=== PATIENT | male | born 1940 | race Caucasian/White ===

== ENCOUNTER → 2017-06-08 | Outpatient (CLI) | payer MEDICARE ==
[~2017-06-08] MED LIST: ACET-1770 PO; ALLO300T PO; ALPR0.257 PO; AMIO200T42 PO; ASPI-496 PO; BISA10SU2 PR; BISA5TAB5 PO; CARV3.122 PO; CLOP75TA52 PO; DEXT1DRO7 EACHEYE; DOCU-131 PO; DRON10CA PO; ENOX40SY4 SQ; FERR240T PO; FURO40TA6 PO; INSU100I9 SQ-INSULIN; LISI-167 PO; MAGN400O7 PO; ONDA4TAB7 PO; PRAV20TA PO; TEMA15CA PO; beer PO
[2017-06-08 13:13] LABS: ASPARTATE AMINO TRANSFERASE 28 U/L (15-37); BLOOD UREA NITROGEN 17 mg/dL (7-18)
== END | disposition home or self-care (01) ==
LOC: LAB 10:01
PROVIDERS: ATTEND Internal Medicine Cardiovascular Disease
DX: E11.9 Type 2 diabetes mellitus without complications (principal); E78.2 Mixed hyperlipidemia; I10 Essential (primary) hypertension
CPT/HCPCS: 36415; 80053; 80061; 83036

== ENCOUNTER → 2017-12-11 | Outpatient (CLI) | payer MEDICARE | END | disposition home or self-care (01) | LOC: CVU 12:36 | PROVIDERS: ATTEND Internal Medicine Cardiovascular Disease | DX: I08.1 Rheumatic disorders of both mitral and tricuspid valves (principal); I25.2 Old myocardial infarction; I10 Essential (primary) hypertension; E78.5 Hyperlipidemia, unspecified; Z95.1 Presence of aortocoronary bypass graft | CPT/HCPCS: 93306 ==

== ENCOUNTER → 2017-12-14 | Outpatient (CLI) | payer MEDICARE ==
[2017-12-14 13:05] LABS: HEMOGLOBIN A1C 7.2 % (4.2-6.3)
== END ==
LOC: LAB 11:40
PROVIDERS: ATTEND Internal Medicine Cardiovascular Disease
DX: I10 Essential (primary) hypertension (principal); E11.9 Type 2 diabetes mellitus without complications; I25.5 Ischemic cardiomyopathy; E78.5 Hyperlipidemia, unspecified
CPT/HCPCS: 36415; 83036

== ENCOUNTER → 2019-08-29 | Outpatient (CLI) | payer MEDICARE ==
[~2019-08-29] MED LIST changes: -BISA10SU2 PR; +BISA10SU4 PR
== END | disposition home or self-care (01) ==
LOC: CFH 12:29
PROVIDERS: ATTEND Internal Medicine Cardiovascular Disease
DX: I08.3 Combined rheumatic disorders of mitral, aortic and tricuspid valves (principal); I25.5 Ischemic cardiomyopathy
CPT/HCPCS: 93306

== ENCOUNTER → 2019-09-06 | Outpatient (CLI) | payer MEDICARE ==
[2019-09-06 13:05] LABS: ALBUMIN 3.6 g/dL (3.4-5.0); ANION GAP 7 mmol/L (5-15); CALCIUM 8.6 mg/dL (8.5-10.1); CHLORIDE 106 mmol/L (98-107)
[2019-09-06 13:08] LABS: ALANINE AMINOTRANSFERASE 26 U/L (12-78); ALKALINE PHOSPHATASE 67 U/L (45-117); BILIRUBIN,TOTAL 0.7 mg/dL (0.2-1.0); CHOL/HDL RATIO 2.4; CHOLESTEROL, TOTAL 139 mg/dL (140-239); CREATININE 1.44 mg/dL (0.7-1.3); HDL CHOL % 41 % (26-37); HDL CHOLESTEROL (DIRECT) 57 mg/dL (40-60); LDL CHOLESTEROL,CALCULATED 60 mg/dL (54-169); LDL/HDL RATIO 1.1 (0.5-3.0); TOTAL PROTEIN 7.3 g/dL (6.4-8.2); TRIGLYCERIDES 112 mg/dL (50-200); VLDL CHOLESTEROL 22 mg/dL (0-25)
== END | disposition home or self-care (01) ==
LOC: CFH 10:25
PROVIDERS: ATTEND Internal Medicine Cardiovascular Disease
DX: I10 Essential (primary) hypertension (principal); E78.2 Mixed hyperlipidemia; I25.5 Ischemic cardiomyopathy; Z95.1 Presence of aortocoronary bypass graft; Z79.899 Other long term (current) drug therapy
CPT/HCPCS: 36415; 80053; 80061; 83036

== ENCOUNTER 2019-10-22 10:55 | Inpatient (IN) | payer MEDICARE ==
[~2019-10-22] VITALS: Ht 180.3 cm; Wt 87.0 kg
[~2019-10-22 10:55] MED LIST changes: +CEFAZOLIN 1,000 MG ONE; +ONDANSETRON 2MG/ML, 2ML ONE; +PROPOFOL 10 MG/ML, 20ML ONE; +ROCURONIUM 10MG/ML,5ML ONE; +SUCCINYLCHOLINE 20 MG/ML, 10ML ONE
--- NOTE | 2019-10-22 11:09 | NUR ---
PT WAS BIB [facility] FOR A GLF HE SUFFERED LAST NIGHT. HE WAS WEDGED BETWEEN HIS COUCH AND THE WALL UNTIL HE WAS FOUND BY HIS GF. DENIES LOC. DENIES HITTING HIT HEAD. LEFT HIP IS PAINFUL WITH MOVEMENT. MD IS BEDSIDE FOR ASSESSMENT. BLANKET PROVIDED. EKG COMPLETE
[2019-10-22 11:34] LABS: BASOPHILS # (AUTO) 0.03 x10^3/uL (0-0.1); BASOPHILS % (AUTO) 0 % (0-1); EOSINOPHILS # (AUTO) 0.02 x10^3/uL (0-0.4); EOSINOPHILS % (AUTO) 0 % (1-7); LYMPHOCYTES # (AUTO) 0.71 x10^3/uL (1-3.4); LYMPHOCYTES % (AUTO) 5 % (22-44); MD NO; MEAN CORPUSCULAR HEMOGLOBIN 34.8 pg (27.5-34.5); MEAN CORPUSCULAR HGB CONC 33.9 g/dL (33.2-36.2); MEAN CORPUSCULAR VOLUME 102.6 fL (81-97); MEAN PLATELET VOLUME 9.3 fL (7.4-10.4); MONOCYTES % (AUTO) 4 % (2-9); NEUTROPHILS # (AUTO) 12.21 x10^3/uL (1.8-6.8); NEUTROPHILS % (AUTO) 91 % (42-75); PLATELET COUNT 107 x10^3/uL (130-400); RED BLOOD COUNT 4.59 x10^6/uL (4.38-5.82); RED CELL DISTRIBUTION WIDTH 14.4 % (9.4-14.8)
[2019-10-22 11:44] LABS: PROTHROMBIN TIME 10.6 Seconds (9.6-11.5)
[2019-10-22 11:46] LABS: ALBUMIN 3.7 g/dL (3.4-5.0); ANION GAP 13 mmol/L (5-15); CHLORIDE 109 mmol/L (98-107)
[2019-10-22 11:49] LABS: ALANINE AMINOTRANSFERASE 30 U/L (12-78); ALKALINE PHOSPHATASE 75 U/L (45-117); BILIRUBIN,TOTAL 1.3 mg/dL (0.2-1.0); CREATININE 1.45 mg/dL (0.7-1.3); TOTAL PROTEIN 7.4 g/dL (6.4-8.2)
[2019-10-22] MEDS ORDERED: LABETALOL 5MG/ML, 20ML IVPush ONE (12:00)
[2019-10-22] MEDS ORDERED: LABETALOL 5MG/ML, 20ML ONE (12:26)
[2019-10-22] MEDS ORDERED: METF500T27 PO (12:46)
[2019-10-22] MEDS ORDERED: ONDANSETRON 2MG/ML, 2ML IVPush PRN (13:00)
[2019-10-22] MEDS ORDERED: DEXTROSE 50%, 50ML SYRINGE IVPush PRN (13:00)
[2019-10-22] MEDS ORDERED: hydrALAzine 20 MG/ML, 1ML IVPush PRN (13:00)
[2019-10-22] MEDS ORDERED: LISINOPRIL 10 MG TABLET PO SCH (13:00)
[2019-10-22] MEDS ORDERED: GLUCAGON 1 MG IM PRN (13:00)
[2019-10-22] MEDS ORDERED: SODIUM CHLORIDE 0.9%, 500ML IVBOLUS ONE (13:00)
[2019-10-22] MEDS ORDERED: DEXTROSE 4 GM TAB.CHEW PO PRN (13:00)
[2019-10-22] MEDS ORDERED: ONDANSETRON ODT 4 MG PO PRN (13:00)
[2019-10-22] MEDS ORDERED: AMLODIPINE 5 MG TABLET PO SCH (13:00)
[2019-10-22] MEDS ORDERED: ACETAMINOPHEN 325 MG TABLET PO PRN (13:00)
[2019-10-22] MEDS ORDERED: FENTANYL PF 250 MCG/5ML ONE (13:47)
[2019-10-22] MEDS ORDERED: MIDAZOLAM 1 MG/ML, 2ML ONE (13:47)
[2019-10-22] MEDS ORDERED: BUPIVACAINE/PF-EPI 0.5% 1:200K ONE (13:51)
[2019-10-22] MEDS ORDERED: LISINOPRIL 10 MG TABLET PO ONE (14:00)
[2019-10-22] MEDS ORDERED: TRANEXAMIC ACID 100 MG/ML, 10ML ONE (15:32)
[2019-10-22] MEDS ORDERED: LISINOPRIL 10 MG TABLET ONE (18:20)
[2019-10-22] MEDS: METOPROLOL SUCCINATE 50 MG TAB.ER.24H PO SCH (18:23)
[2019-10-22 19:14] VITALS: BP 148/85
[2019-10-22] MEDS: INSULIN LISPRO 100 UNITS/ML, PEN SQ-INSULIN SCH ×2 (19:32→20:48)
[2019-10-22] MEDS: BACLOFEN 10 MG TABLET PO PRN (20:47)
[2019-10-22] MEDS: SODIUM CHLORIDE FLUSH 10ML SYR IVF SCH (20:48)
[2019-10-22] MEDS ORDERED: rusuvastatin (21:36)
[2019-10-22] MEDS ORDERED: METO200T47 PO (21:36)
[2019-10-22] MEDS: CEFAZOLIN PMX 1GM/50ML 50 ML IV SCH (23:59)
[2019-10-23] VITALS (7 sets, daily range): BP systolic 90–143; BP diastolic 58–97
[2019-10-23] MEDS: ASPIRIN 81 MG TABLET EC PO SCH (05:01)
[2019-10-23] MEDS: OXYcodone IR 5MG TABLET PO PRN ×2 (05:02→12:26)
[2019-10-23] MEDS: BACLOFEN 10 MG TABLET PO PRN ×3 (05:02→20:45)
[2019-10-23] MEDS: METOPROLOL SUCCINATE 50 MG TAB.ER.24H PO SCH (05:02)
[2019-10-23 05:31] LABS: ANION GAP 8 mmol/L (5-15); CALCIUM 8.3 mg/dL (8.5-10.1); CHLORIDE 108 mmol/L (98-107)
[2019-10-23 05:32] LABS: MEAN CORPUSCULAR HEMOGLOBIN 34.8 pg (27.5-34.5); MEAN CORPUSCULAR HGB CONC 33.4 g/dL (33.2-36.2); RED BLOOD COUNT 4.13 x10^6/uL (4.38-5.82); RED CELL DISTRIBUTION WIDTH 14.7 % (9.4-14.8)
[2019-10-23 06:01] LABS: CREATININE 1.35 mg/dL (0.7-1.3)
[2019-10-23 06:17] LABS: MICROSCOPIC AUTO
[2019-10-23 06:18] LABS: CULTURE INDICATED? NO
[2019-10-23 06:19] LABS: BASOPHILS # (AUTO) 0.01 x10^3/uL (0-0.1); BASOPHILS % (AUTO) 0 % (0-1); EOSINOPHILS # (AUTO) 0.08 x10^3/uL (0-0.4); EOSINOPHILS % (AUTO) 1 % (1-7); LYMPHOCYTES % (AUTO) 9 % (22-44); MD SCAN; MEAN PLATELET VOLUME 9.6 fL (7.4-10.4); MONOCYTES # (AUTO) 0.41 x10^3/uL (0.2-0.8); MONOCYTES % (AUTO) 3 % (2-9); NEUTROPHILS # (AUTO) 11.82 x10^3/uL (1.8-6.8); NEUTROPHILS % (AUTO) 87 % (42-75); PLATELET COUNT 86 x10^3/uL (130-400)
[2019-10-23] MEDS: CEFAZOLIN PMX 1GM/50ML 50 ML IV SCH (07:35)
[2019-10-23] MEDS: INSULIN LISPRO 100 UNITS/ML, PEN SQ-INSULIN SCH ×4 (08:05→20:45)
[2019-10-23] MEDS: ALLOPURINOL 300 MG TABLET PO SCH (08:06)
[2019-10-23] MEDS: LISINOPRIL 10 MG TABLET PO SCH (08:06)
[2019-10-23] MEDS: SODIUM CHLORIDE FLUSH 10ML SYR IVF SCH ×2 (08:06→20:46)
[2019-10-23] MEDS: morphine SULFATE 10 MG/ML, 1ML IVPush PRN ×3 (13:36→20:45)
[2019-10-24 01:40] VITALS: BP 108/67
[2019-10-24 04:42] VITALS: BP 166/102
[2019-10-24] MEDS: ASPIRIN 81 MG TABLET EC PO SCH (04:45)
[2019-10-24] MEDS: METOPROLOL SUCCINATE 50 MG TAB.ER.24H PO SCH (04:45)
[2019-10-24 05:22] LABS: MEAN CORPUSCULAR HEMOGLOBIN 34.5 pg (27.5-34.5); MEAN CORPUSCULAR VOLUME 104.4 fL (81-97); MEAN PLATELET VOLUME 10.3 fL (7.4-10.4); PLATELET COUNT 74 x10^3/uL (130-400); RED BLOOD COUNT 4.13 x10^6/uL (4.38-5.82); RED CELL DISTRIBUTION WIDTH 14.6 % (9.4-14.8)
[2019-10-24 05:28] LABS: ALANINE AMINOTRANSFERASE 18 U/L (12-78); ALBUMIN 2.8 g/dL (3.4-5.0); ANION GAP 6 mmol/L (5-15); CALCIUM 8.9 mg/dL (8.5-10.1); CHLORIDE 107 mmol/L (98-107); CREATININE 1.55 mg/dL (0.7-1.3)
[2019-10-24 05:30] LABS: ALKALINE PHOSPHATASE 67 U/L (45-117); BILIRUBIN,TOTAL 1.3 mg/dL (0.2-1.0); TOTAL PROTEIN 6.5 g/dL (6.4-8.2)
[2019-10-24 05:55] LABS: BASOPHILS # (AUTO) 0.06 x10^3/uL (0-0.1); BASOPHILS % (AUTO) 0 % (0-1); EOSINOPHILS # (AUTO) 0.15 x10^3/uL (0-0.4); EOSINOPHILS % (AUTO) 1 % (1-7); LYMPHOCYTES % (AUTO) 10 % (22-44); MD SCAN; MONOCYTES # (AUTO) 0.63 x10^3/uL (0.2-0.8); MONOCYTES % (AUTO) 5 % (2-9); NEUTROPHILS % (AUTO) 84 % (42-75)
[2019-10-24 06:10] VITALS: BP 104/67
[2019-10-24] MEDS: LISINOPRIL 10 MG TABLET PO SCH (09:25)
[2019-10-24] MEDS: INSULIN LISPRO 100 UNITS/ML, PEN SQ-INSULIN SCH ×4 (09:25→20:37)
[2019-10-24] MEDS: ALLOPURINOL 300 MG TABLET PO SCH (09:25)
[2019-10-24] MEDS: SODIUM CHLORIDE FLUSH 10ML SYR IVF SCH ×2 (09:26→20:37)
[2019-10-24] MEDS: SODIUM CHLORIDE 0.9% 1,000 ML IV SCH (09:27)
[2019-10-24] MEDS ORDERED: SODIUM CHLORIDE 0.9%, 500ML IVBOLUS ONE (09:30)
[2019-10-24 12:29] VITALS: BP 107/64
[2019-10-24] MEDS: OXYcodone IR 5MG TABLET PO PRN (14:19)
[2019-10-24 18:56] VITALS: BP 119/71
[2019-10-25 00:14] VITALS: BP 133/76
[2019-10-25] MEDS: SODIUM CHLORIDE 0.9% 1,000 ML IV SCH ×2 (00:59→12:36)
[2019-10-25 05:37] VITALS: BP 136/73
[2019-10-25] MEDS: ASPIRIN 81 MG TABLET EC PO SCH (05:37)
[2019-10-25] MEDS: METOPROLOL SUCCINATE 50 MG TAB.ER.24H PO SCH (05:37)
[2019-10-25 05:49] LABS: MEAN CORPUSCULAR HEMOGLOBIN 35.1 pg (27.5-34.5); MEAN CORPUSCULAR HGB CONC 33.7 g/dL (33.2-36.2); MEAN CORPUSCULAR VOLUME 103.9 fL (81-97); MEAN PLATELET VOLUME 10.4 fL (7.4-10.4); PLATELET COUNT 71 x10^3/uL (130-400); RED CELL DISTRIBUTION WIDTH 14.5 % (9.4-14.8)
[2019-10-25 05:52] LABS: ALBUMIN 2.5 g/dL (3.4-5.0); ANION GAP 4 mmol/L (5-15); CALCIUM 8.5 mg/dL (8.5-10.1); CHLORIDE 111 mmol/L (98-107)
[2019-10-25 05:56] LABS: ALANINE AMINOTRANSFERASE 15 U/L (12-78); ALKALINE PHOSPHATASE 58 U/L (45-117); BILIRUBIN,TOTAL 1.1 mg/dL (0.2-1.0); CREATININE 1.19 mg/dL (0.7-1.3); TOTAL PROTEIN 5.9 g/dL (6.4-8.2)
[2019-10-25 06:13] VITALS: BP 131/81
[2019-10-25 06:21] LABS: BASOPHILS # (AUTO) 0.02 x10^3/uL (0-0.1); BASOPHILS % (AUTO) 0 % (0-1); EOSINOPHILS # (AUTO) 0.42 x10^3/uL (0-0.4); EOSINOPHILS % (AUTO) 4 % (1-7); LYMPHOCYTES # (AUTO) 1.69 x10^3/uL (1-3.4); LYMPHOCYTES % (AUTO) 17 % (22-44); MD SCAN; MONOCYTES # (AUTO) 0.66 x10^3/uL (0.2-0.8); MONOCYTES % (AUTO) 7 % (2-9); NEUTROPHILS # (AUTO) 7.03 x10^3/uL (1.8-6.8); NEUTROPHILS % (AUTO) 72 % (42-75)
[2019-10-25] MEDS: INSULIN LISPRO 100 UNITS/ML, PEN SQ-INSULIN SCH ×4 (07:00→21:20)
[2019-10-25] MEDS: ALLOPURINOL 300 MG TABLET PO SCH (08:43)
[2019-10-25] MEDS: SODIUM CHLORIDE FLUSH 10ML SYR IVF SCH ×2 (08:43→21:13)
[2019-10-25] MEDS: OXYcodone IR 5MG TABLET PO PRN ×3 (08:44→21:13)
[2019-10-25] MEDS: LISINOPRIL 10 MG TABLET PO SCH (08:44)
[2019-10-25] MEDS ORDERED: POLYETHYLENE GLYCOL 17 GM PACKET PO PRN (10:30)
[2019-10-25 12:28] VITALS: BP 156/90
[2019-10-25 18:44] VITALS: BP 160/88
[2019-10-26 00:36] VITALS: BP 145/80
[2019-10-26 04:53] LABS: MEAN CORPUSCULAR HGB CONC 33.8 g/dL (33.2-36.2); MEAN CORPUSCULAR VOLUME 103.5 fL (81-97); MEAN PLATELET VOLUME 9.6 fL (7.4-10.4); PLATELET COUNT 91 x10^3/uL (130-400); RED BLOOD COUNT 3.57 x10^6/uL (4.38-5.82)
[2019-10-26 04:58] LABS: ALANINE AMINOTRANSFERASE 15 U/L (12-78); ALBUMIN 2.4 g/dL (3.4-5.0); ANION GAP 7 mmol/L (5-15); CALCIUM 8.8 mg/dL (8.5-10.1); CHLORIDE 109 mmol/L (98-107); CREATININE 1.01 mg/dL (0.7-1.3)
[2019-10-26 05:01] LABS: ALKALINE PHOSPHATASE 52 U/L (45-117); BILIRUBIN,TOTAL 1.4 mg/dL (0.2-1.0); TOTAL PROTEIN 5.7 g/dL (6.4-8.2)
[2019-10-26 06:07] LABS: BASOPHILS # (AUTO) 0.03 x10^3/uL (0-0.1); BASOPHILS % (AUTO) 0 % (0-1); EOSINOPHILS # (AUTO) 0.43 x10^3/uL (0-0.4); EOSINOPHILS % (AUTO) 5 % (1-7); LYMPHOCYTES # (AUTO) 1.75 x10^3/uL (1-3.4); LYMPHOCYTES % (AUTO) 22 % (22-44); MD SCAN; MONOCYTES # (AUTO) 0.68 x10^3/uL (0.2-0.8); MONOCYTES % (AUTO) 8 % (2-9); NEUTROPHILS # (AUTO) 5.24 x10^3/uL (1.8-6.8); NEUTROPHILS % (AUTO) 65 % (42-75)
[2019-10-26] MEDS: ASPIRIN 81 MG TABLET EC PO SCH (06:14)
[2019-10-26] MEDS: OXYcodone IR 5MG TABLET PO PRN ×2 (06:15→10:19)
[2019-10-26] MEDS: METOPROLOL SUCCINATE 50 MG TAB.ER.24H PO SCH (06:15)
[2019-10-26] MEDS: INSULIN LISPRO 100 UNITS/ML, PEN SQ-INSULIN SCH ×2 (07:00→11:00)
[2019-10-26 07:04] VITALS: BP 144/67
[2019-10-26] MEDS: ALLOPURINOL 300 MG TABLET PO SCH (08:23)
[2019-10-26] MEDS: LISINOPRIL 10 MG TABLET PO SCH (08:23)
[2019-10-26] MEDS: SODIUM CHLORIDE FLUSH 10ML SYR IVF SCH (09:01)
[2019-10-26] MEDS ORDERED: ENOXAPARIN 40 MG/0.4 ML SQ SCH (11:00)
[2019-10-26] MEDS ORDERED: BACL-19 PO (11:34)
[2019-10-26] MEDS ORDERED: OXYC5TAB3 PO (11:34)
[2019-10-26] MEDS ORDERED: ENOX40SY4 SQ (11:34)
[2019-10-26 12:30] VITALS: BP 149/89
== END 2019-10-26 14:45 | DRG 469 ==
LOC: ED 12:00 → EDIP 12:19 → 4WST 13:54 → EDIP 13:57 → 4WST 14:03
PROVIDERS: ADMIT Hospitalist; ATTEND Hospitalist
PROC: 0SRS0JA Replacement of Left Hip Joint, Femoral Surface with Synthetic Substitute, Uncemented, Open Approach (ICD-10-PCS; principal; 2019-10-22 14:30)
DX: S72.002A Fracture of unspecified part of neck of left femur, initial encounter for closed fracture (principal); N17.0 Acute kidney failure with tubular necrosis; E87.2 Acidosis; D72.829 Elevated white blood cell count, unspecified; E11.22 Type 2 diabetes mellitus with diabetic chronic kidney disease; E78.5 Hyperlipidemia, unspecified; I12.9 Hypertensive chronic kidney disease with stage 1 through stage 4 chronic kidney disease, or unspecified chronic kidney disease; I25.10 Atherosclerotic heart disease of native coronary artery without angina pectoris; I25.2 Old myocardial infarction; I25.5 Ischemic cardiomyopathy; I87.8 Other specified disorders of veins; J44.9 Chronic obstructive pulmonary disease, unspecified; N18.3 Chronic kidney disease, stage 3 (moderate); R09.02 Hypoxemia; Z82.49 Family history of ischemic heart disease and other diseases of the circulatory system; Z87.891 Personal history of nicotine dependence; Z95.1 Presence of aortocoronary bypass graft; W18.39XA Other fall on same level, initial encounter; Y93.89 Activity, other specified; Y92.89 Other specified places as the place of occurrence of the external cause; Y99.8 Other external cause status; Z79.4 Long term (current) use of insulin; Z79.899 Other long term (current) drug therapy
CPT/HCPCS: 36415; 71045; 72170; 80048; 80053; 81001; 82550; 82607; 82962; 84443; 85025; 85610; 85730; 93005; 96374; G0378; J0690; J1650; J2250; J2405; J2704; J3010; C1776; J0330; J1815; J2270; J7030; J7040

== ENCOUNTER → 2020-03-13 | Outpatient (CLI) | payer MEDICARE ==
[~2020-03-13] MED LIST changes: +BACL-19 PO; -CEFAZOLIN 1,000 MG ONE; +METF500T27 PO; +METO200T47 PO; -ONDANSETRON 2MG/ML, 2ML ONE; +OXYC5TAB3 PO; -PROPOFOL 10 MG/ML, 20ML ONE; -ROCURONIUM 10MG/ML,5ML ONE; -SUCCINYLCHOLINE 20 MG/ML, 10ML ONE; +rusuvastatin
== END | disposition home or self-care (01) ==
LOC: CFH 11:02
PROVIDERS: ATTEND Internal Medicine Cardiovascular Disease
DX: E11.22 Type 2 diabetes mellitus with diabetic chronic kidney disease (principal); I12.9 Hypertensive chronic kidney disease with stage 1 through stage 4 chronic kidney disease, or unspecified chronic kidney disease; N18.9 Chronic kidney disease, unspecified; E78.2 Mixed hyperlipidemia; I25.5 Ischemic cardiomyopathy; Z95.1 Presence of aortocoronary bypass graft
CPT/HCPCS: 36415; 82043; 82570; 83036

== ENCOUNTER → 2020-07-10 | Outpatient (CLI) | payer MEDICARE | END | disposition home or self-care (01) | LOC: LAB 10:30 | PROVIDERS: ATTEND Internal Medicine Cardiovascular Disease | DX: I10 Essential (primary) hypertension (principal); E11.9 Type 2 diabetes mellitus without complications; E78.2 Mixed hyperlipidemia; Z95.1 Presence of aortocoronary bypass graft | CPT/HCPCS: 36415; 83036 ==